=== PATIENT | female | born 1955 | race Caucasian/White ===

== ENCOUNTER 2022-08-15 07:19 | Day surgery (SDC) | payer OTHER ==
[2022-08-12 13:57] VITALS: BMI 31.8
[2022-08-15] MEDS ORDERED: LIDOCAINE HCL/PF 2% SDV 5ML VIAL ONE (07:45)
[2022-08-15] MEDS ORDERED: PROPOFOL 120 ML ONE (07:46)
[2022-08-15 08:44] VITALS: PULSE 72; RESP 18; TEMP 97.7
[2022-08-15 09:04] VITALS: BP 112/54
== END 2022-08-15 09:05 | disposition home or self-care (01) ==
LOC: FASU-ENDO 07:19
PROVIDERS: ATTEND Internal Medicine Gastroenterology
PROC: 0DJD8ZZ Inspection of Lower Intestinal Tract, Via Natural or Artificial Opening Endoscopic (ICD-10-PCS; principal; 2022-08-15 08:22)
DX: Z12.11 Encounter for screening for malignant neoplasm of colon (principal); K57.30 Diverticulosis of large intestine without perforation or abscess without bleeding